=== PATIENT | female | born 1995 | race Caucasian/White ===

== ENCOUNTER 2017-12-20 21:11 | Emergency (ER) | payer SELFPAY ==
[~2017-12-20] VITALS: Ht 165.1 cm; Wt 45.0 kg
[~2017-12-20 21:11] MED LIST: CALNTAB; Z.0.NO CURRENT MEDS; ZOFR4TAB PO
[2017-12-20 21:20] VITALS: BP 145/75; PULSE 98; RESP 18; TEMP 98.1; O2SAT 98
[2017-12-20 22:26] VITALS: O2SAT 98
[2017-12-20 22:42] LABS: BASOPHIL # 0.1 TH/MM3 (0-0.2); BASOPHIL % 0.8 % (0.0-2.0); EOSINOPHIL # 0.1 TH/MM3 (0-0.4); EOSINOPHIL % 1.1 % (0.0-4.0); HEMOGLOBIN 12.9 GM/DL (11.6-15.3); LYMPH % 23.4 % (9.0-44.0); MEAN CELL VOLUME 80.3 FL (80.0-100.0); MEAN CORPUSCULAR HEMOGLOBIN 27.3 PG (27.0-34.0); MEAN CORPUSCULAR HGB CONC 34.1 % (32.0-36.0); MEAN PLATELET VOLUME 6.8 FL (7.0-11.0); MONO % 5.6 % (0.0-8.0); MONOCYTE # 0.5 TH/MM3 (0-0.9); NEUT % 69.1 % (16.0-70.0); PLATELET COUNT 329 TH/MM3 (150-450); RED BLOOD COUNT 4.73 MIL/MM3 (4.00-5.30); RED CELL DISTRIBUTION WIDTH 15.9 % (11.6-17.2); WHITE BLOOD COUNT 8.7 TH/MM3 (4.0-11.0)
--- NOTE | 2017-12-20 22:47 | RADRPT ---
EXAM DATE/TIME: 12/20/2017 22:37 [facility] COMPARISON: No previous studies available for comparison. INDICATIONS : Chest pain. MEDICAL HISTORY : None. SURGICAL HISTORY : None. ENCOUNTER: Initial ACUITY: 1 day PAIN SCORE: 4/10 LOCATION: Bilateral chest FINDINGS: A single view of the chest demonstrates the lungs to be symmetrically aerated without evidence of mas s, infiltrate or effusion. The cardiomediastinal contours are unremarkable. Osseous structures are intact. CONCLUSION: No evidence of acute cardiopulmonary disease. Robby Barakat MD on December 20, 2017 at 22:44 Board Certified Radiologist. This report was verified electronically.
[2017-12-20 23:03] LABS: ALBUMIN 3.8 GM/DL (3.4-5.0); AST (GOT) 86 U/L (15-37); BICARBONATE 22.8 MEQ/L (21.0-32.0); BLOOD UREA NITROGEN 16 MG/DL (7-18); CALCIUM 9.4 MG/DL (8.5-10.1); CHLORIDE 108 MEQ/L (98-107); CREATININE 0.53 MG/DL (0.50-1.00); GLOMERULAR FILTRATION RATE 144 ML/MIN (>89); GLUCOSE,RANDOM 99 MG/DL (74-106); MAGNESIUM 2.3 MG/DL (1.5-2.5); SODIUM (NA) 140 MEQ/L (136-145)
[2017-12-20 23:04] LABS: ALT (GPT) 164 U/L (10-53); PROTHROMBIN TIME - PATIENT 9.9 SEC (9.8-11.6)
[2017-12-20 23:05] LABS: D-DIMER 1.43 MG/L FEU (0.00-0.50)
[2017-12-20 23:14] LABS: ALKALINE PHOSPHATASE 112 U/L (45-117); TOTAL BILIRUBIN ADULT 0.6 MG/DL (0.2-1.0); TOTAL PROTEIN 7.9 GM/DL (6.4-8.2); TROPONIN I LESS THAN 0.02 NG/ML (0.02-0.05)
--- NOTE | 2017-12-20 23:14 | PD ---
HPI Chief Complaint: Medical Clearance Time Seen by Provider: 22:00 Travel History International Travel<30 days: No Contact w/Intl Traveler<30days: No Traveled to known affect area: No History of Present Illness HPI 22-year-old female that presents to the ED for evaluation of medical clearance for [facility]. Patient was brought here by police for evaluation of chest pain. Apparently patient was being arrested for unknown reasons and then she developed severe chest pain that radiates to her neck having shortness of breath. Per patient she is never had this before. She does have a history of IV drug abuse and states that she injects fentanyl. She injected yesterday. Before I went into the room patient was sleeping and no sign of acute distress. Patient was easily arousable. Per patient she did not inject any drugs today. She states that the chest pain started just when she was getting handcuffed. She denies any recent travel. Denies take any medications. Pain per patient is sharp and is 10 out of 10. She has no allergies to medication. No abdominal pain. No nausea or vomiting. No other medical issues. Denies any numbness, tingling, weakness. no history of this in the past. PFSH Past Medical History Anemia: Yes (NOT CONFIRMED BY PT AT THIS TIME) Weight (Kg): 3 Anxiety: Yes (NOT CONFIRMED BY PT AT THIS TIME) Depression: Yes (NOT CONFIRMED BY PT AT THIS TIME) Cardiovascular Problems: No Diminished Hearing: No Gastrointestinal Disorders: Yes Genitourinary: No Headaches: No Heparin Induced Thrombocytopen: No Musculoskeletal: No Neurologic: No Reproductive: Yes (heavy periods) Immunizations Current: Yes Seizures: Yes Sickle Cell Disease: No Ulcer: No Influenza Vaccination: No ?: Unknown LMP: uknown : 2 Para: 1 Miscarriage: 1 Past Surgical History Surgical History: No Previous Surgery Social History Alcohol Use: Yes Tobacco Use: Yes Substance Use: Yes (xanax, alcohol, fentanyl, heroin) Allergies-Medications (Allergen,Severity, Reaction): Coded Allergies: No Known Allergies (Verified Adverse Reaction, Unknown, 12/20/17) Reported Meds & Prescriptions Reported Meds & Active Scripts Active No Active Prescriptions or Reported Medications Review of Systems Except as stated in HPI: all other systems reviewed are Neg Physical Exam Narrative GENERAL: SKIN: Warm and dry. HEAD: Atraumatic. Normocephalic. EYES: Pupils equal and round. No scleral icterus. No injection or drainage. ENT: No nasal bleeding or discharge. Mucous membranes pink and moist. Tongue is midline. No uvula deviation. NECK: Trachea midline. No JVD. CARDIOVASCULAR: Regular rate and rhythm. No murmurs, S3, S4. RESPIRATORY: No accessory muscle use. Clear to auscultation. Breath sounds equal bilaterally. GASTROINTESTINAL: Abdomen soft, non-tender, nondistended. Hepatic and splenic margins not palpable. MUSCULOSKELETAL: Extremities without clubbing, cyanosis, or edema. No obvious deformities. Full range of motion of the upper and lower extremities bilaterally. 2+ pulses bilaterally. NEUROLOGICAL: Awake and alert. No obvious cranial nerve deficits. Motor grossly within normal limits. Five out of 5 muscle strength in the arms and legs. Normal speech. PSYCHIATRIC: Appropriate mood and affect; insight and judgment normal. Data Data Last Documented VS Vital Signs Date Time Temp Pulse Resp B/P (MAP) Pulse Ox O2 Delivery O2 Flow Rate FiO2 12/20/17 22:26 98 Room Air 12/20/17 21:20 98.1 98 18 145/75 (98) Orders Orders Complete Blood Count With Diff (12/20/17 22:09) Comprehensive Metabolic Panel (12/20/17 22:09) Ckmb (Isoenzyme) Profile (12/20/17 22:09) Troponin I (12/20/17 22:09) Prothrombin Time / Inr (Pt) (12/20/17 22:09) Act Partial Throm Time (Ptt) (12/20/17 22:09) Lipase (12/20/17 22:09) Urinalysis - C+S If Indicated (12/20/17 22:09) D-Dimer (12/20/17 22:09) Magnesium (Mg) (12/20/17 22:09) Thyroid Stimulating Hormone (12/20/17 22:09) Chest, Single Ap (12/20/17 22:09) Iv Access Insert/Monitor (12/20/17 22:09) Ecg Monitoring (12/20/17 22:09) Oximetry (12/20/17 22:09) Ed Urine Pregnancytest Poc (12/20/17 22:09) Labs Laboratory Tests Test 12/20/17 22:23 12/20/17 23:00 White Blood Count 8.7 TH/MM3 Red Blood Count 4.73 MIL/MM3 Hemoglobin 12.9 GM/DL Hematocrit 38.0 % Mean Corpuscular Volume 80.3 FL Mean Corpuscular Hemoglobin 27.3 PG Mean Corpuscular Hemoglobin Concent 34.1 % Red Cell Distribution Width 15.9 % Platelet Count 329 TH/MM3 Mean Platelet Volume 6.8 FL Neutrophils (%) (Auto) 69.1 % Lymphocytes (%) (Auto) 23.4 % Monocytes (%) (Auto) 5.6 % Eosinophils (%) (Auto) 1.1 % Basophils (%) (Auto) 0.8 % Neutrophils # (Auto) 6.0 TH/MM3 Lymphocytes # (Auto) 2.0 TH/MM3 Monocytes # (Auto) 0.5 TH/MM3 Eosinophils # (Auto) 0.1 TH/MM3 Basophils # (Auto) 0.1 TH/MM3 CBC Comment DIFF FINAL Differential Comment Prothrombin Time 9.9 SEC Prothromb Time International Ratio 1.0 RATIO Activated Partial Thromboplast Time 26.7 SEC D-Dimer Quantitative (PE/DVT) 1.43 MG/L FEU Blood Urea Nitrogen 16 MG/DL Creatinine 0.53 MG/DL Random Glucose 99 MG/DL Albumin 3.8 GM/DL Calcium Level 9.4 MG/DL Magnesium Level 2.3 MG/DL Aspartate Amino Transf (AST/SGOT) 86 U/L Alanine Aminotransferase (ALT/SGPT) 164 U/L Sodium Level 140 MEQ/L Potassium Level 3.8 MEQ/L Chloride Level 108 MEQ/L Carbon Dioxide Level 22.8 MEQ/L Anion Gap 9 MEQ/L Estimat Glomerular Filtration Rate 144 ML/MIN Lipase 77 U/L [facility] Medical Decision Making Medical Screen Exam Complete: Yes Emergency Medical Condition: Yes Medical Record Reviewed: Yes Differential Diagnosis Chest pain versus atypical chest pain versus anxiety versus substance abuse versus malingering Narrative Course 22-year-old female that presents to the ED for evaluation of chest pain. Patient was properly examined and was found to have signs and symptoms of unclear etiology. Appears to be likely a typical chest pain. Labs and imaging order. Case signed out to Dr. Barrientos pending disposition and plan Scripts No Active Prescriptions or Reported Meds Terry Jacob Dec 20, 2017 23:14
[2017-12-21] MEDS ORDERED: IOHEXOL 350 MG/ML 10 ML VIAL (for RAD DIAG) IVCONTRAST ONE (00:13)
--- NOTE | 2017-12-21 00:28 | RADRPT ---
EXAM DATE/TIME: 12/21/2017 00:09 [facility] COMPARISON: No previous studies available for comparison. INDICATIONS : Chest pain after drug use and alcohol consumption. IV CONTRAST: 75 cc Omnipaque 350 (iohexol) IV RADIATION DOSE: 4.61 CTDIvol (mGy) MEDICAL HISTORY : Drug abuse. SURGICAL HISTORY : None. ENCOUNTER: Initial ACUITY: 1 day PAIN SCALE: 4/10 LOCATION: Bilateral chest TECHNIQUE: Volumetric scanning of the chest was performed using a pulmonary embolism protocol MIP images were re constructed. Using automated exposure control and adjustment of the mA and/or kV according to patien t size, radiation dose was kept as low as reasonably achievable to obtain optimal diagnostic quality images. DICOM format image data is available electronically for review and comparison. Follow-up recommendations for detected pulmonary nodules are based at a minimum on nodule size and pa tient risk factors according to Fleischner Society Guidelines. FINDINGS: PULMONARY ARTERIES: No filling defects are seen in the pulmonary arteries through the segmental level. LUNGS: There is no consolidation or pneumothorax . No concerning pulmonary nodule is visualized. PLEURAE: There is no pleural thickening or pleural effusion. MEDIASTINUM: There is good visualization of the great vessels of the middle mediastinum. No evidence of mediastin al or hilar adenopathy/mass. MUSCULOSKELETAL: Within normal limits for patient age. MISCELLANEOUS: The visualized upper abdominal organs demonstrate no acute abnormality. CONCLUSION: 1. Negative for pulmonary embolus. No acute findings. Anam Bagley MD on December 21, 2017 at 0:23 Board Certified Radiologist. This report was verified electronically.
--- NOTE | 2017-12-21 00:45 | PD ---
Physical Exam Narrative General: The patient is a well-developed well-nourished female in no acute distress. Patient was sleeping soundly on my arrival to the room. Head and Neck exam: Head is normocephalic atraumatic. Eyes: EOMI, pupils are equal round and reactive to light. Nose: Midline septum with pink mucous membranes Mouth: Dentition unremarkable. Moist mucus membranes. Posterior oropharynx is not erythematous. No tonsillar hypertrophy. Uvula midline. Airway patent. Neck: No palpable lymphadenopathy. No nuchal rigidity. No thyromegaly. Cardiovascular: Regular rate and rhythm without murmurs, gallops, or rubs. Lungs: Clear to auscultation bilaterally. No wheezes, rhonchi, or rales. Abdomen: Soft, without tenderness to palpation in all 4 quadrants of the abdomen. No guarding, rebound, or rigidity. Normal bowel sounds are audible. No tenderness on palpation of McBurney's point. Negative Tomlinson sign Extremities: No clubbing, cyanosis, or edema. 2+ pulses in all 4 extremities. No calf tenderness on palpation. Neurologic Exam: Grossly nonfocal. Data Data Last Documented VS Vital Signs Date Time Temp Pulse Resp B/P (MAP) Pulse Ox O2 Delivery O2 Flow Rate FiO2 12/20/17 22:26 98 Room Air 12/20/17 21:20 98.1 98 18 145/75 (98) Orders Orders Complete Blood Count With Diff (12/20/17 22:09) Comprehensive Metabolic Panel (12/20/17 22:09) Ckmb (Isoenzyme) Profile (12/20/17 22:09) Troponin I (12/20/17 22:09) Prothrombin Time / Inr (Pt) (12/20/17 22:09) Act Partial Throm Time (Ptt) (12/20/17 22:09) Lipase (12/20/17 22:09) D-Dimer (12/20/17 22:09) Magnesium (Mg) (12/20/17 22:09) Thyroid Stimulating Hormone (12/20/17 22:09) Chest, Single Ap (12/20/17 22:09) Iv Access Insert/Monitor (12/20/17 22:09) Ecg Monitoring (12/20/17 22:09) Oximetry (12/20/17 22:09) Ed Urine Pregnancytest Poc (12/20/17 22:09) Ct Pulmonary Angiogram (12/20/17 23:18) Iohexol 350 Inj (Omnipaque 350 Inj) (12/21/17 00:13) Electrocardiogram (12/21/17 00:39) Sodium Chlor 0.9% 1000 Ml Inj (Ns 1000 M (12/21/17 01:00) Urine Culture (12/20/17 23:00) Labs Laboratory Tests Test 12/20/17 22:23 White Blood Count 8.7 TH/MM3 Red Blood Count 4.73 MIL/MM3 Hemoglobin 12.9 GM/DL Hematocrit 38.0 % Mean Corpuscular Volume 80.3 FL Mean Corpuscular Hemoglobin 27.3 PG Mean Corpuscular Hemoglobin Concent 34.1 % Red Cell Distribution Width 15.9 % Platelet Count 329 TH/MM3 Mean Platelet Volume 6.8 FL Neutrophils (%) (Auto) 69.1 % Lymphocytes (%) (Auto) 23.4 % Monocytes (%) (Auto) 5.6 % Eosinophils (%) (Auto) 1.1 % Basophils (%) (Auto) 0.8 % Neutrophils # (Auto) 6.0 TH/MM3 Lymphocytes # (Auto) 2.0 TH/MM3 Monocytes # (Auto) 0.5 TH/MM3 Eosinophils # (Auto) 0.1 TH/MM3 Basophils # (Auto) 0.1 TH/MM3 CBC Comment DIFF FINAL Differential Comment Prothrombin Time 9.9 SEC Prothromb Time International Ratio 1.0 RATIO Activated Partial Thromboplast Time 26.7 SEC D-Dimer Quantitative (PE/DVT) 1.43 MG/L FEU Blood Urea Nitrogen 16 MG/DL Creatinine 0.53 MG/DL Random Glucose 99 MG/DL Total Protein 7.9 GM/DL Albumin 3.8 GM/DL Calcium Level 9.4 MG/DL Magnesium Level 2.3 MG/DL Alkaline Phosphatase 112 U/L Aspartate Amino Transf (AST/SGOT) 86 U/L Alanine Aminotransferase (ALT/SGPT) 164 U/L Total Bilirubin 0.6 MG/DL Sodium Level 140 MEQ/L Potassium Level 3.8 MEQ/L Chloride Level 108 MEQ/L Carbon Dioxide Level 22.8 MEQ/L Anion Gap 9 MEQ/L Estimat Glomerular Filtration Rate 144 ML/MIN Total Creatine Kinase 24 U/L Troponin I LESS THAN 0.02 NG/ML Lipase 77 U/L Thyroid Stimulating Hormone 3rd Gen 0.114 uIU/ML [facility] Medical Record Reviewed: Yes Supervised Visit with JACKIE: No Interpretation(s) Last Impressions CT Angiography 12/20/[id number] Signed Impressions: Service Date/Time: Thursday, December 21, 2017 00:09 - CONCLUSION: 1. Negative for pulmonary embolus. No acute findings. Anam Bagley MD Chest X-Ray [id number]/20/[id number] Signed Impressions: Service Date/Time: Wednesday, December 20, 2017 22:37 - CONCLUSION: No evidence of acute cardiopulmonary disease. Robby Barakat MD Narrative Course During the course of the patient's emergency department visit, the patient's history, examination, and differential diagnosis were reviewed with the patient. The patient was placed on a rn cardiac with oximetry and frequent blood pressure monitoring. The patient had IV access obtained and blood work sent for analysis. The patient's case was checked out to me by Terry, the physician funeral home assistant. Please see his complete history and physical. The case was checked out to me at the conclusion of his shift. The patient is a 22-year- old female who presents to the [facility] emergency department with a history of chest pain that began after she was placed under arrest and put in handcuffs. The patient since arriving in the emergency department has been sleeping soundly and in no acute distress. The patient had an EKG done on arrival that shows a sinus tachycardia rate of 102, QRS duration 82 ms, QTC [address] segment elevation. T waves are inverted in V1. The patient was provided normal saline 1 L IV fluid bolus. The patient's laboratory studies were reviewed and remarkable for a white count of 8.7, hemoglobin 12.9, platelets 329 with normal differential, CMP is remarkable for chloride of 108, AST 86, ALT 164, alk phos 112, CPK 24, troponin I less than 0.02, lipase 77, TSH is noted to be low at 0.114, PT PTT within normal limits, d-dimer is elevated at 1.43, given the patient's reported chest pain a CTA to rule out PE was ordered Radiology studies were reviewed and remarkable for a chest x-ray that shows no evidence of acute cardiopulmonary disease. CTA to rule out PE is negative for pulmonary embolism. No other acute abnormality was noted The patient will be given a copy of for laboratory results including her elevated LFTs which are in a pattern to suggest a viral hepatitis. The patient also has a low TSH and will need follow-up testing of her thyroid function. The patient denies having a primary care physician. She is given the name and information of the local [facility] for follow-up. The patient is also given a lab slip to obtain viral hepatitis testing, repeat LFTs, thyroid function testing in 1 week. The patient will be discharged into police custody. The patient is resting comfortably and feels better, is alert and in no distress. The patient's results and examination findings were discussed with the patient. The repeat examination is unremarkable and benign. The history, exam, diagnostic testing, and current condition do not suggest any significant pathology to warrant further testing, continued ED treatment, admission, or surgical evaluation at this point. The vital signs have been stable. The patient does not have uncontrollable pain, intractable vomiting, or other significant symptoms. The patient's condition is stable and appropriate for discharge. The patient will pursue further outpatient evaluation with a primary care physician or other designated or consulting physician as indicated in the discharge instructions. The patient expressed understanding and was agreeable with this plan. Diagnosis Primary Impression: Atypical chest pain Additional Impressions: Elevated liver enzymes Low TSH level Referrals: [facility] 1 week Patient Instructions: Chest Pain (ED), General Instructions Additional Instruction: The patient will be given a copy of for laboratory results including her elevated LFTs which are in a pattern to suggest a viral hepatitis. The patient also has a low TSH and will need follow-up testing of her thyroid function. The patient was given a lab slip to obtain liver function tests, viral hepatitis testing and thyroid function testing in 1 week. The patient is instructed to avoid alcohol and Tylenol to prevent further exacerbation of her elevated liver enzymes. Scripts No Active Prescriptions or Reported Meds Disposition: [address] LAW ENFORCEMNT Condition: Stable Gerda Barrientos MD Dec 21, 2017 00:45
[2017-12-21] MEDS ORDERED: SODIUM CHLOR 0.9% 1000 ML INJ 1,000 ML IV ONE (01:00)
--- NOTE | 2017-12-21 08:51 | EKG ---
Date Performed: 12/21/2017 Time Performed: 00:45:02 PTAGE: 22 years EKG: SINUS TACHYCARDIA BORDERLINE RIGHT AXIS DEVIATION ABNORMAL RHYTHM ECG PREVIOUS TRACING : 12/21/2017 00.44 DOCTOR: Antonio Holman Interpretating Date/Time 12/21/2017 08:49:39
== END 2017-12-21 02:46 ==
LOC: NEPE 21:11
DX: R07.89 Other chest pain (principal); R74.8 Abnormal levels of other serum enzymes; R00.0 Tachycardia, unspecified; Z72.0 Tobacco use
CPT/HCPCS: 71045; 71275; 80053; 82550; 83690; 83735; 84443; 84484; 84703; 85025; 85379; 85610; 85730; 87077; 87086; 87186; 93005; 99285; J7030; Q9967; 81001